=== PATIENT | male | born 1955 | race Caucasian/White ===

== ENCOUNTER 2021-03-04 13:18 | Emergency (ER) | payer OTHER, SELFPAY ==
[2021-03-04 13:25] VITALS: BP 164/95; PULSE 79; RESP 18; TEMP 36.6; O2SAT 100
[2021-03-04 14:26] VITALS: BP 143/94; PULSE 64; RESP 18; O2SAT 98
--- NOTE | 2021-03-04 15:23 | PC.NURSE ---
Change RN calling poison control for patient at this time
--- NOTE | 2021-03-04 15:30 | PC.NURSE ---
spoke with poison control - Sharyn, case # [id number]. check visual acuity & corneal abrasions
--- NOTE | 2021-03-04 16:54 | ED.GENADULT ---
HPI - General Adult General Chief complaint: Environmental Exposure Stated complaint: eye injury Time Seen by Provider: 03/04/21 15:14 Source: patient Mode of arrival: ambulatory Limitations: no limitations History of Present Illness HPI narrative: This is a 65-year-old male that presents to the emergency department after an eye injury just prior to arrival. Reports he was using his lawnmower and some gas from the lawnmower flew up into his eyes. Reports he has had irritation and redness to the eyes since. He came via EMS to wash out his eyes with 700 mils of normal saline. He also washed his eyes at home with water just after incident. Denies visual changes. Related Data Allergies Allergy/AdvReac Type Severity Reaction Status Date / Time cortisone Allergy Severe SLURRED Verified 03/04/21 14:30 SPEECH, ELEVATED TEMP, BLURRED VISION, Penicillins Allergy Unknown Rash Verified 03/04/21 14:30 Review of Systems Review of Systems: CONSTITUTIONAL: Denies fever EYES: Reports redness. Denies visual changes, or discharge. All systems reviewed & are unremarkable except as noted in HPI and below PMFSH Past Medical History Medical History (Updated 03/04/21 @ 17:02 by Chelsey Whitaker PA-C) History of hyperlipidemia Social History Social History (Updated 03/04/21 @ 16:56 by Chelsey Whitaker PA-C) Substance use: never Exam Narrative: GENERAL: Well-appearing, well-nourished, and in no acute distress. HEAD: Normocephalic, atraumatic. EYES: PERRLA and EOMI. Bilateral conjunctival injection. Eyelid everted, no foreign bodies noted. Visual acuity 20/25 bilaterally. No fluorescein stain uptake EXTREMITIES: Normal range of motion. No edema. SKIN: Warm, dry, no rash. NEURO: No focal deficits. Alert and oriented x3. PSYCH: Normal mood and affect Course Vital Signs Vital signs: Vital Signs Temperature 98 F 03/04/21 13:25 Pulse Rate 79 03/04/21 13:25 Respiratory Rate 18 03/04/21 13:25 Blood Pressure 164/95 H 03/04/21 13:25 Pulse Oximetry 100 03/04/21 13:25 Temperature 98 F 03/04/21 13:25 Pulse Rate 64 03/04/21 14:26 Respiratory Rate 18 03/04/21 14:26 Blood Pressure 143/94 H 03/04/21 14:26 Pulse Oximetry 98 03/04/21 14:26 Medical Decision Making MDM Narrative Medical decision making narrative: Patient presents to the emergency department after having gas from his lawnmower splashed into his eyes. Patient was irrigated with 700 mils of normal saline in route via EMS. He does have mild conjunctival injection bilaterally. Normal visual acuity. No corneal abrasions or foreign bodies noted on exam. Spoke with poison control who reports based on these findings patient is able to be discharged. He was instructed to follow-up with his eye doctor. He was given warnings to return to the ER Vital Signs Vital Signs: Vital Signs Temperature 98 F 03/04/21 13:25 Pulse Rate 79 03/04/21 13:25 Respiratory Rate 18 03/04/21 13:25 Blood Pressure 164/95 H 03/04/21 13:25 Pulse Oximetry 100 03/04/21 13:25 Temperature 98 F 03/04/21 13:25 Pulse Rate 64 03/04/21 14:26 Respiratory Rate 18 03/04/21 14:26 Blood Pressure 143/94 H 03/04/21 14:26 Pulse Oximetry 98 03/04/21 14:26 Critical Care Time Critical Care Time Critical Care Time: No Discharge Plan Discharge Clinical Impression: Chemical exposure of eye Patient Disposition: Home, Self-Care Condition: Stable Instructions: Conjunctivitis (ED) Additional Instructions: Return to the emergency department if you experience redness and swelling of your eye, visual changes, vomiting, or any other symptoms that are concerning to you Tylenol or ibuprofen as needed for discomfort. You may apply [id number] lubricant eyedrops as needed for discomfort Follow-up with your eye doctor. Call on Saturday to make an appointment Follow-up/Referrals: PHYSICIAN,BOX SORTER [Primary Ca
== END 2021-03-04 17:08 | disposition home or self-care (01) ==
PROVIDERS: Emergency Provider Emergency Medicine
DX: Z77.098 Contact with and (suspected) exposure to other hazardous, chiefly nonmedicinal, chemicals (principal); E78.5 Hyperlipidemia, unspecified
CPT/HCPCS: 99282

== ENCOUNTER 2021-09-04 01:33 | Day surgery (SDC) | payer OTHER, SELFPAY ==
[2021-06-28 13:47] VITALS: BMI 28.1
[2021-08-21 14:42] VITALS: BMI 28.0
--- NOTE | 2021-09-04 07:18 | P.PNAN_ITS ---
Anes - Initial Pre Proc Eval Procedure: Operation Date: 09/04/21 09:30 Proposed Procedures p Screening Colonoscopy - Rohit Price MD Date/Time: 09/04/21 07:18 Surgeon: Rohit Price MD Pre Op Diagnosis: family hx of colon polyps, hx of colon polyps Patient Data Age: 65 Gender: M Height: 1.75 m Weight: 86.2 kg Allergies Allergy/AdvReac Type Severity Reaction Status Date / Time cortisone Allergy Severe SLURRED Verified 09/04/21 08:42 SPEECH, ELEVATED TEMP, BLURRED VISION, Penicillins Allergy Unknown Rash Verified 09/04/21 08:42 Home Medications Medication Instructions Recorded Confirmed Type aspirin 81 mg PO DAILY 06/28/21 06/28/21 History atorvastatin 10 mg PO DAILY 06/28/21 06/28/21 History cetirizine [Zyrtec] 10 mg PO DAILY 06/28/21 06/28/21 History finasteride 5 mg PO DAILY 06/28/21 06/28/21 History glucosamine sulfate [Glucosamine] 500 mg PO BID 06/28/21 06/28/21 History Patient hx anesthesia problems: none Family hx anesthesia problems: none Results Review: All pre-operative results and documents have been reviewed as part of the pre-operative evaluation. [facility] Past Medical History Medical History (Updated 09/04/21 @ 09:12 by Rohit Price MD) History of hyperlipidemia Hypertension Surgical History Surgical History (Updated 09/04/21 @ 07:19 by Dano Santos DO) History of tonsillectomy Social History Social History (Updated 03/04/21 @ 16:56 by Chelsey Whitaker PA-C) Smoking packs per day: 1 Smoking cigarettes per day: 20.0 Years smoked: 4 Smoking pack-years: 4.00 Smoking status: Former smoker Tobacco type: cigarettes Alcohol intake: current Drinks per week: 3 Alcohol use details: 3/month Substance use: never Substance use type: does not use Living arrangements: with family Spiritual care concerns: No Anes - Eval Final PreProcedure Day of Procedure 09/04/21 07:18 Patient weight: overweight Heart: regular rate and rhythm Lungs: clear to auscultation and normal air movement Airway: Mallampati scale class II Neurological: alert and oriented Last oral intake: >/= 8 hours ASA classification: II Emergent: no Anesthetic plan: proceed Anesthesia type and monitoring: general GIVS and standard monitoring Results Review: All pre-operative results and documents have been reviewed as part of the pre-operative evaluation. Informed Consent: The patient's anesthetic plan and its attendant risks and benefits were discussed with the patient/family/POA. Questions were solicited and answers provided to the satisfaction of the patient/family/POA.
[2021-09-04 08:43] VITALS: BP 137/87; PULSE 78; RESP 18; TEMP 36.5; O2SAT 99
[2021-09-04] MEDS: LACTATED RINGERS 1,000 ML 150 ML IV CONT (08:52)
--- NOTE | 2021-09-04 09:11 | WPDGICN ---
Assessment and Plan Assessment and plan (1) Encounter for screening colonoscopy: Code(s): Z12.11 - Encounter for screening for malignant neoplasm of colon Status: Acute Assessment and Plan: Patient presents for screening colonoscopy. His mother may have had colon polyps in the past. Further recommendations will be given after endoscopy. GI Consult Note Consult date/time: 09/04/21 09:11 HPI: Cheikh Garland is a 65 year old male Presents for screening colonoscopy. Patient's current weight appetite and bowel movements are normal. He denies abdominal pain. He has had no bleeding. Family history is significant that his mother had colon polyps. Patient's last colonoscopy 9 or 10 years ago revealed only benign hyperplastic polyps. Patient reports his current bowel movements are normal. Review of Systems Review of Systems: All systems reviewed & are unremarkable except as noted in HPI and below PMFSH Past Medical History Medical History (Updated 09/04/21 @ 09:12 by Rohit Price MD) History of hyperlipidemia Hypertension Surgical History Surgical History (Updated 09/04/21 @ 07:19 by Dano Santos DO) History of tonsillectomy Social History Social History (Updated 03/04/21 @ 16:56 by Chelsey Whitaker PA-C) Smoking packs per day: 1 Smoking cigarettes per day: 20.0 Years smoked: 4 Smoking pack-years: 4.00 Smoking status: Former smoker Tobacco type: cigarettes Alcohol intake: current Drinks per week: 3 Alcohol use details: 3/month Substance use: never Substance use type: does not use Living arrangements: with family Spiritual care concerns: No Meds Home Medications and Allergies Home Medications Medication Instructions Recorded Confirmed Type aspirin 81 mg PO DAILY 06/28/21 06/28/21 History atorvastatin 10 mg PO DAILY 06/28/21 06/28/21 History cetirizine [Zyrtec] 10 mg PO DAILY 06/28/21 06/28/21 History finasteride 5 mg PO DAILY 06/28/21 06/28/21 History glucosamine sulfate [Glucosamine] 500 mg PO BID 06/28/21 06/28/21 History Allergies Allergy/AdvReac Type Severity Reaction Status Date / Time cortisone Allergy Severe SLURRED Verified 09/04/21 08:42 SPEECH, ELEVATED TEMP, BLURRED VISION, Penicillins Allergy Unknown Rash Verified 09/04/21 08:42 Vital Signs Vital Signs - 24 hr 09/04/21 08:43 Temperature 97.7 F Pulse Rate 78 Respiratory Rate 18 Blood Pressure 137/87 Pulse Oximetry 99 Exam Narrative: Physical exam reveals patient to be alert. Vital signs stable. HEENT exam is unremarkable. Patient is anicteric. Lungs are clear to auscultation and percussion. Heart is without murmur or extra sounds. Abdominal exam bowel sounds are present soft nontender with no organomegaly. Digital external rectal exam is normal.
[2021-09-04 09:39] VITALS: BP 114/78; PULSE 73; RESP 20; O2SAT 98
[2021-09-04 09:49] VITALS: BP 127/95; PULSE 80; RESP 20; O2SAT 99
[2021-09-04 09:59] VITALS: BP 133/91; PULSE 67; RESP 19; O2SAT 99
== END 2021-09-04 10:24 | disposition home or self-care (01) ==
PROVIDERS: Visit Provider Internal Medicine Gastroenterology
PROC: 0DJD8ZZ Inspection of Lower Intestinal Tract, Via Natural or Artificial Opening Endoscopic (ICD-10-PCS; CPT 45378; principal; 2021-09-04 09:30)
DX: Z12.11 Encounter for screening for malignant neoplasm of colon (principal); K63.5 Polyp of colon; K64.8 Other hemorrhoids; K57.30 Diverticulosis of large intestine without perforation or abscess without bleeding; Z83.71 Family history of colonic polyps; E78.5 Hyperlipidemia, unspecified; Z79.82 Long term (current) use of aspirin; Z87.891 Personal history of nicotine dependence
CPT/HCPCS: 45380; 88305; J2704; J7120

== ENCOUNTER 2023-01-22 15:33 | Emergency (ER) | payer MEDICARE, SELFPAY ==
--- NOTE | 2023-01-22 15:45 | ED.EYEPROB ---
HPI - Eye Problem General Chief complaint: Eye Problems Stated complaint: lt eye irritation Time Seen by Provider: 01/22/23 15:49 Source: patient and RN notes reviewed Mode of arrival: ambulatory Limitations: no limitations History of Present Illness HPI Narrative: 67-year-old male presents with concern for left eye pain, redness that started when he woke up this morning. He reports he felt like he has an eyelash in his eye. He reports that since that October. He denies any change in vision. He denies per the drainage from the eye MD chief complaint: eye pain Related Data Home Medications Medication Instructions Recorded Confirmed aspirin 81 mg tablet 81 mg PO DAILY 06/28/21 01/22/23 atorvastatin 10 mg tablet 10 mg PO DAILY 06/28/21 01/22/23 cetirizine 10 mg tablet (Zyrtec) 10 mg PO DAILY 06/28/21 01/22/23 finasteride 5 mg tablet 5 mg PO DAILY 06/28/21 01/22/23 glucosamine sulfate 500 mg tablet 500 mg PO BID 06/28/21 01/22/23 (Glucosamine) Allergies Allergy/AdvReac Type Severity Reaction Status Date / Time cortisone Allergy Severe SLURRED Verified 01/22/23 15:37 SPEECH, ELEVATED TEMP, BLURRED VISION, Penicillins AdvReac Mild Rash Verified 01/22/23 15:37 Review of Systems Review of Systems: CONSTITUTIONAL: Denies malaise, chills, sweats, or fever. EYES: Denies visual changes. Reports left eye redness,, pain ENT: Denies rhinorrhea, congestion, sinus pain, otalgia or sore throat. SKIN: Denies rash or itching. NEUROLOGIC: Denies numbness, weakness, or headache. PSYCHIATRIC: Denies anxiety or depression. All systems reviewed & are unremarkable except as noted in HPI and below PMFSH Past Medical History Medical History (Updated 01/22/23 @ 16:05 by Stephani Eli NP) History of hyperlipidemia Hypertension Surgical History Surgical History (Updated 09/04/21 @ 07:19 by Dano Santos DO) History of tonsillectomy Social History Social History (Updated 03/04/21 @ 16:56 by Chelsey Whitaker PA-C) Smoking packs per day: 1 Smoking cigarettes per day: 20.0 Years smoked: 4 Smoking pack-years: 4.00 Smoking status: Former smoker Tobacco type: cigarettes Alcohol intake: current Drinks per week: 3 Alcohol use details: 3/month Substance use: never Substance use type: does not use Living arrangements: with family Spiritual care concerns: No Comments At time of signature, agree with nursing past medical, surgical, social and family history. There is no relevant family history pertinent to the presenting complaint Exam Narrative: GENERAL: Well-appearing, well-nourished, and in no acute distress. HEAD: Normocephalic, atraumatic. EYES: PERRLA and EOMI. No nystagmus. Bilateral conjunctivae clear. Left sclera injected with corneal abrasion noted upon Wood's lamp exam, see note. No foreign bodies noted. Upper and lower eyelid unremarkable, no periorbital edema noted ENT: Nares clear, turbinates pink, no rhinorrhea or epistaxis. Mucous membranes moist. TM pearly bynum with sharp light reflex bilaterally; no tragal tenderness. NECK: Supple. CHEST: No respiratory distress. Speaks in full sentences. HEART: Regular rate and rhythm. SKIN: Warm, dry, no visible rash. NEURO: Alert and oriented x3. PSYCH: Normal mood and affect Course Course Emergency Course: Patient is aware of diagnosis, understands and agrees to treatment plan. Anticipatory guidance given. Patient agrees to follow-up as directed and is aware of reasons to seek care at the emergency department. Portions of this record may have been created with voice recognition software Level of Care: Express Care Visit Vital Signs Vital signs: Reviewed. Procedures Other Procedure Procedure 1: Other Procedure: Tetracaine 1 gtt instilled in left eye, fluorescein stain applied. Corneal abrasion noted upon mejia lamp exam at approximately 3 o'clock in relation to the pupil. Eye wa
[2023-01-22 15:51] VITALS: BP 134/86; PULSE 72; RESP 18; TEMP 36.3; O2SAT 99
== END 2023-01-22 16:06 | disposition home or self-care (01) ==
PROVIDERS: Emergency Provider Nurse Practitioner; PCP Hospitalist
DX: S05.02XA Injury of conjunctiva and corneal abrasion without foreign body, left eye, initial encounter (principal); X58.XXXA Exposure to other specified factors, initial encounter; E78.5 Hyperlipidemia, unspecified; I10 Essential (primary) hypertension; Z79.82 Long term (current) use of aspirin; Z87.891 Personal history of nicotine dependence
CPT/HCPCS: 99213; A9270; G0463

== ENCOUNTER → 2025-03-23 11:40 | Outpatient (REF) | payer MEDICARE, SELFPAY ==
--- NOTE | 2025-03-23 11:40 | S_PTH ---
PATIENT: Cheikh Garland LOC: [facility] #:[id number] AGE/SX: 69/M ROOM: RE03/23/[address]: Jacoby Vargas MD : [id number] BED: DIS: SPEC #: [id number] RECD: 03/24/25 08:48 STATUS: CHANTAL REAlannah #: [id number] SHIRA: 03/23/25 11:[address]: Jacoby Vargas DEPT: [facility] Surgical RECD BY: Wanda Lam MLT, ([facility]) ENTERED: 03/24/25 08:48 SP TYPE: Surgical OTHR DR: Bruno BustamanteJr. MD Tissues: A - Biopsy Procedures: Hematoxylin and Eosin Stain Gross and Microscopic Level 4
== END ==
LOC: ANHLAB 11:40
PROVIDERS: PCP Hospitalist; Visit Provider Plastic Surgery
DX: C44.619 Basal cell carcinoma of skin of left upper limb, including shoulder (principal)
CPT/HCPCS: 88305